=== PATIENT | female | born 1990 | race Caucasian/White ===

== ENCOUNTER 2017-05-23 20:27 | Emergency (ER) | payer OTHER ==
[2017-05-23 20:45] VITALS: BP 143/84; TEMP 97.7
[2017-05-23] MEDS ORDERED: NEOMYCIN-BACITRACIN-POLYMYXIN 0.9 GM UD TOP ONE ×2 (21:01)
--- NOTE | 2017-05-23 21:03 | ED.PDOC ---
History of Present Illness - General Chief Complaint: General Stated Complaint: draining incision Time Seen by Provider: 05/23/17 20:53 Source: patient Exam Limitations: no limitations - History of Present Illness Initial Comments: Patient presents with leakage of clear fluid from a transverse wound. The C/S was performed one week ago. She has had some pain there since the surgery. There is no purulent fluid but the leakage has been from an area on the healing surgical wound that has white granulation tissue. No fevers nor bleeding. No other complaints. Patient is a . Timing/Duration: unsure Severity: mild Improving Factors: nothing Worsening Factors: nothing Associated Symptoms: denies symptoms Allergies/Adverse Reactions: Allergies Penicillins Allergy (Unknown, Verified 05/23/17 20:46) Home Medications: Ambulatory Orders Vit W/ Ferrous Fumara [] 05/23/17 Review of Systems - Review of Systems Constitutional: States: no symptoms reported EENTM: States: no symptoms reported Respiratory: States: no symptoms reported Cardiology: States: no symptoms reported Gastrointestinal/Abdominal: States: no symptoms reported Genitourinary: States: no symptoms reported Musculoskeletal: States: no symptoms reported Skin: States: see HPI Neurological: States: no symptoms reported Endocrine: States: no symptoms reported Hematologic/Lymphatic: States: no symptoms reported Past Medical History (General) - Patient Medical History Hx Seizures: No Hx Stroke: No Hx Asthma: No Hx Cardiac Disorders: No Hx Hypertension: No Hx Thyroid Disease: No Hx Diabetes: No Hx Gastroesophageal Reflux: No Hx Cancer: No - Vaccination History Hx Influenza Vaccination: No Immunizations Up to Date: Yes - Social History Hx Alcohol Use: No - Female History Patient is a Female of Child Bearing Age (10 -59 yrs old): Yes Patient : No - Triage Comment ED Triage Comment: post 8days ago. Family Medical History - Family History Father Hx Cardiac Disease: Yes Physical Exam - Physical Exam General Appearance: Alert Respiratory: lungs clear Cardiovascular/Chest: regular rate, rhythm Gastrointestinal/Abdominal: normal bowel sounds, non tender, soft Skin Exam: other - 1.5 cm area of granulation tissue exposed along a well healing transvers wound. No purulence. There is a small amount of clear fluid visible. No erythema nor cellitus. Departure - Departure Clinical Impression: Encounter for postoperative wound check Disposition: Discharge to Home or Self Care Condition: Good Departure Forms: ED Discharge - Pt. Copy, Patient Portal Self Enrollment Diet: resume usual diet Activity: other - as per your surgeon Referrals: Scarlet Renteria NP [Primary Care Provider] - 1-2 Weeks Home Medications: Ambulatory Orders Vit W/ Ferrous Fumara [] 05/23/17 Additional Instructions: Apply topical antibiotic to the affected area 2-3 times per day until healed. Call your machine tool operator for recommendation when to follow-up for a wound check.
[2017-05-23 21:12] VITALS: O2SAT 97
== END 2017-05-23 21:12 | disposition home or self-care (01) ==
LOC: ER 20:27
DX: Z98.890 Other specified postprocedural states (principal)

== ENCOUNTER 2018-12-26 13:59 | Emergency (ER) | payer SELFPAY ==
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
[2018-12-26 15:49] VITALS: BP 127/80; TEMP 97.3; O2SAT 99
== END 2018-12-26 15:43 | disposition home or self-care (01) ==
LOC: ER 13:59
DX: S05.01XA Injury of conjunctiva and corneal abrasion without foreign body, right eye, initial encounter (principal); X58.XXXA Exposure to other specified factors, initial encounter; Z88.0 Allergy status to penicillin; Y92.9 Unspecified place or not applicable

== ENCOUNTER → 2019-02-02 | Outpatient (CLI) | payer OTHER ==
--- NOTE | 2019-02-02 16:17 | US ---
EXAM DESCRIPTION: Breast,Right: Ultrasound CLINICAL HISTORY: 28 yearsFemaleRIGHT BREAST MASS . Mass on the right breast at the 12:00 position. No personal or family history of breast cancer. Menarche age 11. Childbirth. Premenopausal. No HRT. Lifetime risk of developing breast cancer (Tyrer-Cuzick model)(%): Not calculated due to age less than 35 years. COMPARISON: None. TECHNIQUE: Transcutaneous scanning of the right breast utilizing bravo-scale and Doppler modes. Scanning performed by the cement finisher helper ; observation by Dr. Hooper. FINDINGS: Ultrasound: Scanning of the right breast at the 12:00 sector, where mass was palpable, from the chest wall to the nipple. Mostly fibroglandular and fibrocystic tissues with minimal fatty echotexture. No dominant solid mass, no distinct cyst, no parenchymal edema, no large calcifications. No overlying skin changes. IMPRESSION: No suspicious or significant imaging findings. BI-RADS CATEGORY: 1 - NEGATIVE FOLLOW UP: The region of interest should be followed on clinical grounds, and if noted to change in size or character, a targeted/directed follow-up on US examination may be performed. Written communication explaining the findings and follow-up, will be mailed to the patient and referring health care provider. The FINDINGS and the FOLLOW-UP plan were reviewed in person with the patient after the examination. According to the [employer], yearly mammograms are recommended starting at age 40 and continuing as long as a woman is in good health. Any breast change noted on a breast self-exam should be reported promptly to the patient's healthcare provider. Breast MRI is recommended for women with an approximately 20-25% or greater lifetime risk of breast cancer, including women with a strong family history of breast or ovarian cancer and women who have been treated for Hodgkin's disease. A negative mammographic report should not delay tissue diagnosis in patients with significant clinical history or physical findings. Extremely dense breast tissue limits the sensitivity of digital mammography. Electronically signed by: Eligio Hooper MD 02/02/2019 4:15 PM ARCHIVIST
== END ==
LOC: US 13:30
PROVIDERS: ATTEND Family Medicine
DX: N63.10 Unspecified lump in the right breast, unspecified quadrant (principal)